=== PATIENT | female | born 1975 ===

== ENCOUNTER 2017-11-03 13:04 | Emergency (ER) | payer OTHER ==
[2017-11-03 13:26] VITALS: BMI 21.9
[2017-11-03 13:27] VITALS: RESP 18; TEMP 98.9
[2017-11-03 15:02] VITALS: BP 121/75; PULSE 89; O2SAT 97
--- NOTE | 2017-11-03 19:20 | C.PDOC ---
History Of Present Illness 42 year old male presents to the emergency department with complaints of bug bites throughout her body for the last month. Patient states that she noticed a new one this morning. She reports that she has inspected her mattress and did not find anything. She denies having any pets or any recent travel. Chief Complaint (Nursing): Abnormal Skin Integrity History Per: Patient History/Exam Limitations: no limitations Onset/Duration Of Symptoms: Other (one month) Current Symptoms Are (Timing): Still Present Past Medical History Reviewed: Historical Data, Nursing Documentation, Vital Signs Vital Signs: Last Vital Signs Temp 98.9 F 11/03/17 13:26 Pulse 89 11/03/17 15:01 Resp 18 11/03/17 15:01 BP 121/75 11/03/17 15:01 Pulse Ox 97 11/03/17 19:24 - Medical History PMH: No Chronic Diseases Surgical History: No Surg Hx Family History: States: No Known Family Hx - Social History Hx Tobacco Use: No Hx Alcohol Use: Yes Hx Substance Use: No - Immunization History Hx Tetanus Toxoid Vaccination: No Hx Influenza Vaccination: No Hx Pneumococcal Vaccination: No Review Of Systems Except As Marked, All Systems Reviewed And Found Negative. Constitutional: Negative for: Fever, Chills Skin: Positive for: Other (diffuse insect bites) Physical Exam - Physical Exam Appears: Non-toxic, No Acute Distress Skin: Warm, Dry, Other (insect bites present on bilateral arms and legs, as well as the neck, and chest.) Head: Atraumatic, Normacephalic Eye(s): bilateral: Normal Inspection Nose: Normal Oral Mucosa: Moist Throat: Normal, No Erythema, No Exudate Neck: Normal, Supple Chest: Symmetrical, No Tenderness Cardiovascular: Rhythm Regular, No Murmur Respiratory: Normal Breath Sounds, No Rales, No Rhonchi, No Wheezing Gastrointestinal/Abdominal: Normal Exam, Soft, No Tenderness, No Guarding, No Rebound Extremity: Normal ROM (all extremities) Neurological/Psych: Oriented x3, Normal Speech, Normal Cognition ED Course And Treatment O2 Sat by Pulse Oximetry: 97 (RA) Pulse Ox Interpretation: Normal Progress Note: Plan: Decadron 10mg IM Disposition - Disposition Referrals: [facility] [Outside] at [facility] [Outside] Disposition: HOME/ ROUTINE Disposition Time: 14:30 Condition: GOOD Additional Instructions: JAZZ CONTRERAS, thank you for letting us take care of you today. Your provider was Madi Ellis DO and you were treated for RASH. The emergency medical care you received today was directed at your acute symptoms. If you were prescribed any medication, please fill it and take as directed. It may take several days for your symptoms to resolve. Return to the Emergency Department if your symptoms worsen, do not improve, or if you have any other problems. Please contact your doctor or call one of the physicians/clinics you have been referred to that are listed on the Patient Visit Information form that is included in your discharge packet. Bring any paperwork you were given at discharge with you along with any medications you are taking to your follow up visit. Our treatment cannot replace ongoing medical care by a primary care provider outside of the emergency department. Thank you for allowing the [facility] team to be part of your care today. Wash all your bedding with hot water and inspect your mattress. Follow up with the clinic this week for re-evaluation. Prescriptions: predniSONE [Prednisone] 40 mg PO DAILY #6 tab Instructions: Dermatitis Forms: [employer] (Belizean) - Clinical Impression Clinical Impression: Dermatitis - Scribe Statement The provider has reviewed the documentation as recorded by the Scribe (Mal Calderon) Provider Attestation: All medical record entries made by the Scribe were at my direction and personally dictated by me. I have reviewed the chart and agree that the record accurately reflects my personal performance of the history, physical exam, medical decision making, and the department course for this patient. I have also personally directed, reviewed, and agree with the discharge instructions and disposition.
== END 2017-11-03 15:23 | disposition home or self-care (01) ==
LOC: C.ER 13:04
DX: L30.9 Dermatitis, unspecified (principal)
CPT/HCPCS: 96372; 99284; J1100

== ENCOUNTER 2017-11-15 20:11 | Emergency (ER) | payer OTHER ==
[2017-11-15 20:12] VITALS: BMI 21.9
[2017-11-15 20:42] VITALS: BP 111/62; PULSE 73; RESP 20; TEMP 98.3; O2SAT 97
[2017-11-15] MEDS ORDERED: Dexamethasone 4 mg/1 ml IM STA (21:03)
--- NOTE | 2017-11-15 21:07 | C.PDOC ---
History Of Present Illness 42 year old female presents to the emergency department with complaints of itchy rash to neck and chest. Patient states she was seen in ED for similar rash last week and given shot. Patient states that she noticed rash again this morning. She reports that she has inspected her mattress and did not find any bugs. She denies any SOB, difficulty swallowing and new products. Time Seen by Provider: 11/15/17 20:52 Chief Complaint (Nursing): Abnormal Skin Integrity History Per: Patient History/Exam Limitations: no limitations Onset/Duration Of Symptoms: Days Current Symptoms Are (Timing): Still Present Past Medical History Reviewed: Historical Data, Nursing Documentation, Vital Signs Vital Signs: Last Vital Signs Temp 98.3 F 11/15/17 20:37 Pulse 73 11/15/17 20:37 Resp 20 11/15/17 20:37 BP 111/62 11/15/17 20:37 Pulse Ox 97 11/15/17 20:37 Family History: States: Unknown Family Hx - Social History Hx Tobacco Use: No Hx Alcohol Use: Yes Hx Substance Use: No - Immunization History Hx Tetanus Toxoid Vaccination: No Hx Influenza Vaccination: No Hx Pneumococcal Vaccination: No Review Of Systems Except As Marked, All Systems Reviewed And Found Negative. ENT: Negative for: Other (no difficulty swallowing ) Respiratory: Negative for: Shortness of Breath Skin: Positive for: Rash (itchy rash to neck and chest. ) Physical Exam - Physical Exam Appears: Well, Non-toxic, No Acute Distress Skin: Warm, Dry, Rash (maculopapular rash anterior upper chest wall and neck) Head: Atraumatic, Normacephalic Eye(s): bilateral: Normal Inspection Oral Mucosa: Moist Neck: Normal ROM, Supple Chest: Symmetrical Cardiovascular: Rhythm Regular, No Murmur Respiratory: Normal Breath Sounds, No Rales, No Rhonchi, No Wheezing Extremity: Bilateral: Atraumatic, Normal Color And Temperature, Normal ROM Neurological/Psych: Oriented x3, Normal Speech Gait: Steady ED Course And Treatment O2 Sat by Pulse Oximetry: 97 (RA) Pulse Ox Interpretation: Normal Medical Decision Making Medical Decision Making: Assessment: 42 year old female presents to the ED with urticarial rash to neck and chest. Dispo: Decadron, Benadryl and Pepcid given. On reevaluation, the patient is resting comfortably, has no shortness of breath, has no intra-oral swelling, has no stridor, and pruritus improved. Patient was advised to avoid potential allergens and to follow up with their physician in 1- 2 days for a follow up. Disposition Counseled Patient/Family Regarding: Diagnosis, Need For Followup, Rx Given - Disposition Referrals: Dhaval Guerra MD [Staff Provider] - Disposition: HOME/ ROUTINE Disposition Time: 21:20 Condition: STABLE Additional Instructions: Take benadryl every 4-6 hours as needed for itching keep area clean and dry take prednisone 40 mg daily Follow up with orthopedic designer or manager career Prescriptions: predniSONE [predniSONE Tab] 40 mg PO DAILY #10 tab Instructions: Hives (DC) Forms: [employer] (Czech) - POA Present On Arrival: None - Clinical Impression Clinical Impression: Allergic urticaria - PA / SALON STYLIST / Resident Statement MD/DO has reviewed & agrees with the documentation as recorded. - Scribe Statement The provider has reviewed the documentation as recorded by the Scribe (Windy Wellington) All medical record entries made by the Scribe were at my direction and personally dictated by me. I have reviewed the chart and agree that the record accurately reflects my personal performance of the history, physical exam, medical decision making, and the department course for this patient. I have also personally directed, reviewed, and agree with the discharge instructions and disposition.
[2017-11-15] MEDS ORDERED: Dexamethasone 4 mg/1 ml ONE (21:11)
== END 2017-11-15 21:30 | disposition home or self-care (01) ==
LOC: C.ER 20:11
DX: L50.0 Allergic urticaria (principal)
CPT/HCPCS: 96372; 99283; J1100

== ENCOUNTER 2018-03-05 09:28 | Outpatient (CLI) | payer SELFPAY | END 2018-03-05 09:29 | disposition home or self-care (01) | LOC: C.MAMMO 09:28 ==

== ENCOUNTER 2018-04-15 10:56 | Outpatient (CLI) | payer SELFPAY | END 2018-04-15 10:57 | disposition home or self-care (01) | LOC: C.USH 10:56 | DX: R92.8 Other abnormal and inconclusive findings on diagnostic imaging of breast (principal) ==